=== PATIENT | female | born 1990 | race Caucasian/White ===

== ENCOUNTER 2020-05-27 08:57 | Emergency (ER) | payer MEDICAID ==
[~2020-05-27] VITALS: Ht 165.1 cm; Wt 102.0 kg
[2020-05-27 09:05] VITALS: BP 133/84
[2020-05-27] MEDS ORDERED: Cipro HC otic suspension 10ML bottle RIGHT EAR STA (10:52)
[2020-05-27] MEDS ORDERED: AMOX500C2 PO (10:59)
== END 2020-05-27 11:58 | disposition home or self-care (01) ==
LOC: ER 08:58
DX: H61.21 Impacted cerumen, right ear (principal); Z79.899 Other long term (current) drug therapy
CPT/HCPCS: 69209; 99283